=== PATIENT | male | born 1975 | race Hispanic/Latino ===

== ENCOUNTER 2024-01-05 14:02 | Emergency (ER) | payer BC ==
[~2024-01-05] VITALS: Ht 167.6 cm; Wt 72.6 kg
[2024-01-05 14:04] VITALS: BP 137/87; PULSE 96; RESP 14
[2024-01-05] MEDS ORDERED: AMOX1TAB16 PO (14:20)
[2024-01-05] MEDS ORDERED: IBUP-2077 PO (14:20)
[2024-01-05] MEDS ORDERED: METH4TAB3 PO (14:20)
[2024-01-05] MEDS: AMOX/CLAV 875/125MG TAB PO ONE (14:45)
[2024-01-05] MEDS: DEXAMETHASONE SOD PHOSPHATE 4 MG/ML 1ML VIAL IM ONE (14:45)
[2024-01-05] MEDS: IBUPROFEN 800 MG TAB PO ONE (14:46)
== END 2024-01-05 15:01 | disposition home or self-care (01) ==
LOC: EDH 14:02
DX: J03.90 Acute tonsillitis, unspecified (principal)
CPT/HCPCS: 99284; 96372; J1100